=== PATIENT | female | born 1955 | race Caucasian/White ===

== ENCOUNTER 2018-11-18 08:26 | Day surgery (SDC) | payer OTHER, SELFPAY ==
[2018-11-18 09:01] VITALS: BP 152/95; PULSE 87; RESP 16; TEMP 36; O2SAT 94; BMI 25.7
[2018-11-18 09:14] LABS: Platelet Count 237 X10^3/uL (150-400)
[2018-11-18 09:35] LABS: Prothrombin Time 11.6 SECONDS (10.1-12.7)
[2018-11-18 09:53] LABS: PTT Partial Thromboplastin Tim 34 SECONDS (26.4-36.2)
[2018-11-18 10:06] VITALS: BP 123/91; PULSE 81; RESP 18; O2SAT 98
[2018-11-18 10:31] VITALS: BP 170/97; PULSE 84; RESP 16; TEMP 36.1; O2SAT 95
--- NOTE | 2018-11-18 10:40 | SUR.PHASEII ---
Pt returned to [facility] at 1024. The radiologist called to say that the procedure could not be completed because the pt had taken 2 medications that need to be discontinued 48 hours prior to surgery. 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 The radiologist, Dr. Sagastume gave me a verbal order for DC.
== END 2018-11-18 10:35 | disposition home or self-care (01) ==
PROVIDERS: Radiology Diagnostic Radiology; PCP Internal Medicine; Visit Provider Internal Medicine Rheumatology
DX: M54.17 Radiculopathy, lumbosacral region (principal); Z53.09 Procedure and treatment not carried out because of other contraindication; Z98.1 Arthrodesis status; M43.16 Spondylolisthesis, lumbar region; M47.816 Spondylosis without myelopathy or radiculopathy, lumbar region; M43.17 Spondylolisthesis, lumbosacral region
CPT/HCPCS: 62284; 36415; 72132; 85049; 85610; 85730

== ENCOUNTER 2019-01-05 08:10 | Day surgery (SDC) | payer OTHER, SELFPAY ==
[2019-01-05] VITALS (10 sets, daily range): BP systolic 127–173; BP diastolic 83–111; PULSE 75–93; RESP 16–18; TEMP 36.4–37.1; O2SAT 97–99; BMI 26.6
--- NOTE | 2019-01-05 | DI.RAD.S_ITS ---
PROCEDURE: [place] INJECT SPINE FOR CT MYELO INDICATIONS: Radiculopathy, lumbosacral region TECHNIQUE: The indications, alternatives, benefits, risks and complications of the procedure were explained to the patient. Written informed consent was obtained and placed in the chart. The patient was placed in a prone position on the fluoroscopy table, and a level was chosen for percutaneous access under fluoroscopic guidance. The skin was prepped and draped in a sterile fashion. After local anaesthetic, a spinal needle was then used to enter the intrathecal space, with return of clear cerebrospinal fluid. 15 mL of Isovue M-200 were administered intrathecally under fluoroscopic visualization. The needle was then withdrawn, and a bandage applied to the puncture site. Fluoroscopic spot films were then acquired in various positions. FINDINGS: Standing frontal, lateral, and oblique views demonstrate no significant central canal stenoses. Access level: L4-L5 Medications: 1% lidocaine for local anaesthesia. Complications: None. Patient was transferred to CT for subsequent CT myelogram. IMPRESSION: Successful fluoroscopically guided administration of iodinated contrast into the lumbar spine central canal for CT myelogram. Dictated by: Bret Santacruz M.D. on 01/05/2019 at 10:34 Approved by: Bret Santacruz M.D. on 01/05/2019 at 10:35
[2019-01-05 08:54] LABS: Platelet Count 222 X10^3/uL (150-400)
[2019-01-05 09:01] LABS: Prothrombin Time 11.5 SECONDS (10.1-12.7)
[2019-01-05 09:04] LABS: PTT Partial Thromboplastin Tim 32 SECONDS (26.4-36.2)
--- NOTE | 2019-01-05 09:31 | DI.CT.S_ITS ---
PROCEDURE: CT LUMBAR SPINE W CON INDICATIONS: Radiculopathy, lumbosacral region TECHNIQUE: After the intrathecal administration of intrathecal contrast, 3 mm thick sections acquired from T12 to the sacrum. Sagittal and coronal reformats were then constructed. In this patient, 3-D reformatted images were also performed. For radiation dose reduction, the following was used: automated exposure control. COMPARISON: [facility], CT, L-SPINE WITHOUT CONTRAST, 06/25/2017, 15:44. [facility], MR, L-SPINE WITHOUT CONTRAST, 09/11/2016, 17:21. [facility], RF, [place] INJECT SPINE FOR CT MYELO, 01/05/2019, 9:26. FINDINGS: Image quality: Excellent. Bones: No spondylolysis or spondylolisthesis. No suspicious bony lesions. No acute fractures. Mild dextroconvex scoliotic curvature is seen. Soft tissues: No retroperitoneal masses. Visualized aorta demonstrates normal caliber. Atherosclerotic calcification is noted. Postoperative changes are seen, with bilateral pedicle screws at L3, L4, and L5 levels. The screws appear well placed. Vertical fixation rods are seen. Disc spacers are seen at the L3-L4 and L4-L5 levels. No findings of hardware failure or hardware loosening are seen. There is associated streak artifact. There has been removal of portions of the posterior elements. T12-L1: No significant abnormality is seen. L1-L2: Level within normal limits. L2-L3: The disc height is well-preserved. Minimal to mild disc bulge is seen. Mild hypertrophy of the posterior elements can be seen. Moderate bilateral neural foraminal narrowing is seen. Moderate central canal narrowing is seen. When comparison is made with the prior examination, these findings are similar. L3-L4: Postoperative changes are seen at this level. The disc height is well-preserved. Mild disc bulge is seen. Likely mild to moderate bilateral neural foraminal narrowing is seen. No significant central canal narrowing is seen. No significant change compared to 2017. L4-L5: Postoperative changes are seen at this level. The disc height is well preserved. There is moderate left-sided and mild to moderate right-sided neural foraminal narrowing seen. Moderate central canal narrowing is seen, as on series 9 image 58. When comparison is made with the prior examination, these findings are similar. L5-S1: The disc height is well-preserved. Mild disc bulge is seen. Moderate facet hypertrophy is seen, left worse than right. Effi-rh-[id number] bilateral neural foraminal narrowing is seen. Moderate central canal narrowing is seen. When comparison is made with the prior CT images, these findings are similar. Miscellaneous: Nerve roots appear unremarkable throughout. No nerve root clumping to suggest arachnoiditis. IMPRESSION: Unremarkable L3-L5 postoperative hardware. Lumbar spine degenerative changes are seen, without significant progression compared to the [address] Dictated by: Ben Andre M.D. on 01/05/2019 at 11:25 Approved by: Ben Andre M.D. on 01/05/2019 at 11:37
[2019-01-05] MEDS: fentaNYL 100 MCG/2 ML INJ 50 MCG IV (09:44)
[2019-01-05] MEDS: MIDAZOLAM 2 MG/2 ML VIAL 1 MG IV (09:44)
--- NOTE | 2019-01-05 10:29 | PC.NURSE ---
Pt tolerated procedure well. Transferred to CT scan on stretcher at 0957, on table in CT at 1002, Then tranferred to PACU by Markus Bah. Gave report to Samantha ELLIS in PACU at 1010.
[2019-01-05] MEDS: CODEINE/ACETAMINOPHEN 30/300 TABLET 1 TAB PO (10:30)
[2019-01-05] MEDS: diazePAM 5 MG TABLET PO (10:30)
--- NOTE | 2019-01-05 17:50 | PC.NURSE ---
Follow up call made to make sure pt was doing ok after her myelogram today. She said she took a nice long nap when she got home and now she is feeling better. She reported that lying flat makes her anxious and it's painful so post procedure was uncomfortable but she is doing better now.
== END 2019-01-05 13:00 | disposition home or self-care (01) ==
PROVIDERS: PCP Internal Medicine; Visit Provider Nurse Practitioner
DX: M54.17 Radiculopathy, lumbosacral region (principal); Z98.1 Arthrodesis status; M43.16 Spondylolisthesis, lumbar region; I10 Essential (primary) hypertension; F32.9 Major depressive disorder, single episode, unspecified; E88.81 Metabolic syndrome and other insulin resistance; R53.1 Weakness
CPT/HCPCS: 36415; 62284; 72132; 77003; 85049; 85610; 85730; J2250; J3010; Q9967